=== PATIENT | male | born 1985 | race Caucasian/White ===

== ENCOUNTER 2018-08-14 13:35 | Outpatient (REF) | payer OTHER, SELFPAY ==
[2018-08-14 15:10] LABS: Abs Immature Grans 0.02 k/cumm (0.0-0.09); Absolute Basophil Count 0.01 k/cumm (0.0-0.2); Absolute Eosinophil Count 0.04 k/cumm (0.0-0.7); Absolute Lymphocyte Count 1.84 k/cumm (1.2-3.4); Absolute Monocyte Count 0.75 k/cumm (0.11-0.7); Absolute Neutrophil Count 5.17 k/cumm (1.2-6.7); Basophils % 0.1; Eosinophils % 0.5; HGB 15.8 g/dL (13.5-17.5); Immature Grans % 0.3; Lymphocytes % 23.5; Mean Corp. HGB Concentration 34.3 g/dL (32.0-36.0); Mean Corpuscular Hemoglobin 29.3 pg (27.0-33.0); Mean Corpuscular Volume 85.2 fL (80-95); Mean Platelet Volume 13.4 fL (8.0-11.0); Monocytes % 9.6; Platelet Count 165 x1000/uL (130-400); RBC Distribution Width 13.2 % (11.8-14.1); White Blood Cell Count 7.83 k/cumm (4.4-10.8)
[2018-08-14 16:10] LABS: ALT 32 U/L (12-78); AST 19 U/L (15-37); Albumin 4.1 g/dL (3.4-5.0); Alkaline Phosphatase 96 U/L (46-116); Anion Gap 9.6 mmol/L (3-11); BUN 17 mg/dL (7-18); Bilirubin, Total 0.6 mg/dL (0.2-1.0); CO2 27.4 mmol/L (21.0-32.0); Calcium 9.3 mg/dL (8.5-10.1); Chloride 103 mmol/L (98-107); Glucose 91 mg/dL (70-100); Potassium 4.6 mmol/L (3.5-5.1); Sodium 140 mmol/L (136-145); TSH (W/Ref FT4) 1.46 uIU/mL (0.358-3.74); Total Protein 7.8 g/dL (6.4-8.2)
== END 2018-08-14 13:55 ==
LOC: NCHCN 13:35
PROVIDERS: PCP Nurse Practitioner Family; Visit Provider Nurse Practitioner Family
DX: R53.83 Other fatigue (principal); F32.9 Major depressive disorder, single episode, unspecified; F41.9 Anxiety disorder, unspecified; F10.10 Alcohol abuse, uncomplicated; Z00.00 Encounter for general adult medical examination without abnormal findings
CPT/HCPCS: 80053; 84443; 85025

== ENCOUNTER 2018-11-07 08:25 | Outpatient (CLI) | payer OTHER, SELFPAY ==
--- NOTE | 2018-11-07 08:36 | DI.RAD_ITS ---
SYMPTOM/DIAGNOSIS: LACERATION, ? FOREIGN BODY, H12.162N LEFT HAND: No fracture or dislocation is seen. No radiopaque foreign body is identified. IMPRESSION: Negative left hand.
== END 2018-11-07 08:45 ==
PROVIDERS: PCP Nurse Practitioner Family; Visit Provider Nurse Practitioner Family
DX: S61.221A Laceration with foreign body of left index finger without damage to nail, initial encounter (principal)
CPT/HCPCS: 73130

== ENCOUNTER 2019-08-14 17:33 | Emergency (ER) | payer SELFPAY ==
[2019-08-14 17:37] VITALS: BP 141/84; PULSE 104; RESP 18; TEMP 36.8; O2SAT 91
[2019-08-14] MEDS: Fluorescein STRIPS 100/BOX 1 MG OP (17:55)
[2019-08-14] MEDS: Tetracaine 0.5% 4 ML BTL OP (17:55)
--- NOTE | 2019-08-14 18:07 | W.ED.GENAD ---
Discharge Plan Disposition Patient Disposition: HOME Discharge Details Chief Complaint: EyeProblem Clinical Impression: Abrasion of right cornea Primary Care Provider: Beni Mcelroy ED Provider: Julio Neal Home Meds and New Rx's Prescriptions: Continued trazodone 50 MG tablet 50 mg PO HS RF: 0 naltrexone 50 MG tablet 50 mg PO DAILY RF: 0 sertraline 25 mg Tablet 25 mg PO DAILY RF: 0 Discharge Instructions Instructions: Erythromycin (Into the eye), Corneal Abrasion (ED) Additional Instructions: Please follow-up with client relations specialist. Call on Saturday. Please follow-up with eye health care facilities inspector on Saturday. Call on Saturday to schedule an appointment. Please use erythromycin antibiotic eye ointment as follows: 0.5 inch ribbon to right eye 4 times a day for the next 1 week. Return to the ER for any worsening or new concerning symptoms. Referrals: [facility] [Outside] Discharge Data Discharge Date/Time-TO BE ENTERED AT DEPARTURE: 08/14/19 18:21 Medical Decision Making 34-year-old male here with injury to right eye. Vision 20/25. OD 20/40, OS 20/25. Corneal abrasion noted with fluorescein stain under Horowitz lamp. Suspect concurrent traumatic iritis. Tetracaine applied and pain significantly improved. Tylenol and ibuprofen were provided. Plan to initiate erythromycin eye ointment and have him follow-up with ophthalmology. Usual and customary discharge instructions were reviewed with the patient who verbalized understanding. HPI General Mode of arrival: ambulatory. Date/Time Provider Initiated Documentation: 08/14/19 17:34. Limitations to Documentation: no limitations. Information obtained by: patient. HPI Narrative: 34-year-old male presents with chief complaint of eye pain. Patient notes around 230 today he was at work and turned into a open cardboard box. The corner of the box impacted his eye. He has had pain in his eye since the incident. Pain is moderate to severe. Pain worse with light exposure. Said associated tearing from his eye. Related Data Home Medications Medication Instructions Recorded Confirmed naltrexone 50 mg PO DAILY 12/02/17 08/14/19 trazodone 50 mg PO HS 12/02/17 08/14/19 sertraline 25 mg PO DAILY 08/14/19 08/14/19 Allergies Allergy/AdvReac Type Severity Reaction Status Date / Time No Known Allergies Allergy Unverified 08/14/19 17:40 General Stated Complaint: EyeProblem PHILIP: 3 Review of Systems Eyes Eyes: Reports as per [facility] Social History Smoking/Tobacco Use Status: Current every day Tobacco Type: cigarettes Alcohol Intake: current Alcohol Intake frequency: a few times a week Drug use: Daily Substance use type: marijuana Do you feel safe at home: Yes Do you feel safe in your relationship?: Yes Exam Const General: cooperative and uncomfortable Eyes Periorbital: periorbital findings normal Eyelids: eyelids normal Conjunctivae: conjunctivae normal Sclera: sclerae normal Cornea: corneas abnormal on the right fluorescein used and abrasion (two) linear and at the following clock position (11 and 6) Pupils: PERRL EOM: EOM intact bilaterally Skin Trauma: no lacerations or abrasions (face) Course Vital Signs Vital signs: Vital Signs Temperature 36.8 C 08/14/19 17:37 Pulse 104 H 08/14/19 17:37 Respiratory Rate 18 08/14/19 17:37 Blood Pressure 141/84 H 08/14/19 17:37 Pulse Oximetry 91 L 08/14/19 17:37 Temperature 36.8 C 08/14/19 17:37 Temperature Source Temporal Artery Scan 08/14/19 17:37 Pulse 104 H 08/14/19 17:37 Respiratory Rate 18 08/14/19 17:37 Respiratory Effort Non-Labored 08/14/19 17:41 Blood Pressure 141/84 H 08/14/19 17:37 Blood Pressure Position Sitting 08/14/19 17:37 Pulse Oximetry 91 L 08/14/19 17:37 Oxygen Delivery Method Room Air 08/14/19 17:37 Oxygen Flow Rate 0 08/14/19 17:37 Pain Level 7 08/14/19 17:37
[2019-08-14] MEDS: Acetaminophen 325 MG TAB 650 MG PO (18:11)
[2019-08-14] MEDS: Ibuprofen 600 MG TAB PO (18:11)
[2019-08-14] MEDS: Balanced Salt Solution 15 ML BTL (18:12)
[2019-08-14] MEDS: Erythromycin Ophth Oint 3.5 GM TUBE OD (18:12)
== END 2019-08-14 18:21 | disposition home or self-care (01) ==
PROVIDERS: Emergency Provider Student in an Organized Health Care Education/Training Program; PCP Nurse Practitioner Family
DX: S05.01XA Injury of conjunctiva and corneal abrasion without foreign body, right eye, initial encounter (principal); W26.2XXA Contact with edge of stiff paper, initial encounter
CPT/HCPCS: 99283

== ENCOUNTER 2019-11-30 08:29 | Outpatient (REF) | payer OTHER, SELFPAY ==
[2019-11-30 15:52] LABS: ALT 34 U/L (16-63); AST 23 U/L (15-37); Alkaline Phosphatase 94 U/L (46-116); Anion Gap 13.7 mmol/L (3-11); BUN 17 mg/dL (7-18); Bilirubin, Total 0.7 mg/dL (0.2-1.0); CO2 22.3 mmol/L (21.0-32.0); CREATININE 1.17 mg/dL (0.70-1.30); Calcium 8.9 mg/dL (8.5-10.1); Calculated LDL 138 mg/dL (<100); Chloride 106 mmol/L (98-107); Cholesterol 211 mg/dL (<200); Glucose 111 mg/dL (74-106); HDL Cholesterol 55 mg/dL (40-60); Potassium 4.1 mmol/L (3.5-5.1); Sodium 142 mmol/L (136-145); Total Protein 7.1 g/dL (6.4-8.2); Triglyceride 90 mg/dL (<150)
[2019-12-01 11:13] LABS: Hepatitis C Ab w Rflx HCV PCR Negative (Negative)
[2019-12-01 16:58] LABS: HIV-1/2 Ag & Ab Screen Negative (Negative)
== END 2019-11-30 08:49 ==
LOC: NCHCN 08:29
PROVIDERS: PCP Nurse Practitioner Family; Visit Provider Nurse Practitioner Family
DX: Z00.00 Encounter for general adult medical examination without abnormal findings (principal); Z11.4 Encounter for screening for human immunodeficiency virus [HIV]; Z11.59 Encounter for screening for other viral diseases; Z13.220 Encounter for screening for lipoid disorders
CPT/HCPCS: 80053; 80061; 86803; 87389

== ENCOUNTER 2023-05-30 19:56 | Emergency (ER) | payer OTHER, SELFPAY ==
[2023-05-30 20:00] VITALS: BP 129/91; PULSE 91; RESP 16; TEMP 36.3; O2SAT 97
--- NOTE | 2023-05-30 20:12 | ED.GENADUL_ITS ---
Discharge Plan Disposition Patient Disposition: Home Condition: Improving Discharge Details Chief Complaint: Laceration Clinical Impression: Arm laceration Primary Care Provider: Unknown,Unknown ED Provider: Sixto Tarango Discharge Instructions Instructions: Laceration (ED) Additional Instructions: Please keep wound clean and dry. Please return to the Emergency Department for bleeding, signs of infection, or other abnormal symptom Medical Decision Making 30-year-old male presents with laceration to left brachial region slipped with an X-Acto knife, 6 cm gaping laceration to medial aspect of proximal left forearm exposed subcutaneous fat, mild venous oozing no evidence of neurovascular injury, flexion extension at elbow intact flexion extension and wrist intact, flexion extension of fingers intact, median radial and ulnar nerve sensory distribution intact, warm well-perfused extremity radial pulse intact. Patient up-to-date with tetanus vaccination. No foreign bodies appreciated. Will irrigate wound, will anesthetize and closed with simple erupted absorbable sutures. Home care instructions and return precautions to be given. 20: 5110 times simple interrupted 4-0 Vicryl sutures. Steri-Strips applied home care instructions and return precautions given HPI General Date/Time Provider Initiated Documentation: 05/30/23 20:04 . HPI Narrative: 38-year-old male presents after accidental laceration to left arm slipped with an X-Acto knife, patient is up-to-date with his tetanus. Related Data Allergies Allergy/AdvReac Type Severity Reaction Status Date / Time No Known Allergies Allergy Unverified 05/30/23 19:59 General Stated Complaint: Laceration PHILIP: 4 Review of Systems Narrative: Review of Systems Constitutional: negative Eyes: negative ENT: negative Cardiovascular: negative Respiratory: negative Gastrointestinal: negative : negative Musculoskeletal: negative Skin: Arm laceration Neurologic: negative Psych: negative PFSH All Active Problems (Updated 05/30/23 @ 20:54 by Sixto Tarango MD) Arm laceration (Acute) Abrasion of right cornea (Acute) Social History Smoking/Tobacco Use Status: Current every day Tobacco Type: cigarettes Smoking risk assessment performed?: Yes Alcohol Intake: current Alcohol Intake frequency: a few times a week Drug use: Daily Substance use type: marijuana Housing: house Do you feel safe at home: Yes Do you feel safe in your relationship?: Yes Exam Narrative Exam Narrative: Extremity: Left upper extremity 6 cm gaping laceration to medial region of proximal forearm, exposed subcutaneous fat, no visible neurovascular injury, patient has full flexion extension of arm sensation median radial and ulnar nerve distribution in the hand intact, strong radial pulse, flexion extension and hand and wrist intact, no visible foreign bodies Course Vital Signs Vital signs: Vital Signs Temperature 36.3 C L 05/30/23 20:00 Pulse 91 H 05/30/23 20:00 Respiratory Rate 16 05/30/23 20:00 Blood Pressure 129/91 H 05/30/23 20:00 Pulse Oximetry 97 05/30/23 20:00 Temperature 36.3 C L 05/30/23 20:00 Temperature Source Temporal Artery Scan 05/30/23 20:00 Pulse 91 H 05/30/23 20:00 Respiratory Rate 16 05/30/23 20:00 Respiratory Effort Normal, Non-Labored 05/30/23 20:06 Blood Pressure 129/91 H 05/30/23 20:00 Blood Pressure Position Sitting 05/30/23 20:00 Pulse Oximetry 97 05/30/23 20:00 Oxygen Delivery Method Room Air 05/30/23 20:00 Oxygen Flow Rate 0 05/30/23 20:00 Pain Level 2 05/30/23 20:07 Procedures Laceration Laceration 1: Site: upper extremity Side (If applicable): left Size (cm): 6 Description: linear Depth: involves muscle layer Local Anesthetic: Lidocaine 1% Amount of anesthesia used (mL): 3 Pre-repair: wound explored, irrigated extensively and deep structures intact Skin layer closed with: vicryl Size (cm): 4-0 Number of sutures: 10 Technique: simple, interrupted
== END 2023-05-30 21:04 | disposition home or self-care (01) ==
PROVIDERS: Emergency Provider Emergency Medicine
DX: M79.632 Pain in left forearm (principal); S41.112A Laceration without foreign body of left upper arm, initial encounter; W26.0XXA Contact with knife, initial encounter
CPT/HCPCS: 12002